=== PATIENT | female | born 1955 | race Caucasian/White ===

== ENCOUNTER 2024-11-03 13:48 | Inpatient (IN) | payer MEDICARE ==
[~2024-11-03] VITALS: Ht 167.6 cm; Wt 112.7 kg
[2024-11-03 13:52] VITALS: BP 121/59
[2024-11-03] MEDS ORDERED: ASPIRIN81 M1 PO (14:18)
[2024-11-03] MEDS ORDERED: AMLODIPINE BESYL5 MG PO (14:18)
[2024-11-03] MEDS ORDERED: FUROSEMIDE20 M1 PO (14:20)
[2024-11-03] MEDS ORDERED: LAMOTRIGINE200 MG PO (14:20)
[2024-11-03] MEDS ORDERED: METOPROLOL SUCC50 M1 PO (14:21)
[2024-11-03] MEDS ORDERED: PRAVASTATIN SOD80 MG PO (14:21)
[2024-11-03] MEDS ORDERED: TOPIRAMATE50 M2 PO (14:22)
[2024-11-03] MEDS ORDERED: LOSARTAN POTAS100 M1 PO (14:22)
[2024-11-03] MEDS ORDERED: CLOMIPRAMINE25 MG PO (14:23)
[2024-11-03] MEDS ORDERED: ARICEPT5 M1 PO (14:24)
[2024-11-03] MEDS ORDERED: HYDROCODONE-AC1 EAC2 PO (14:25)
[2024-11-03] MEDS ORDERED: ATIVAN0.5 MG PO (14:25)
[2024-11-03] MEDS ORDERED: MIRALAX17 GM PO (14:26)
[2024-11-03] MEDS ORDERED: POTASSIUM CHLO20 ME3 PO (14:26)
[2024-11-03 14:33] LABS: BASO # 0.1 10*3/uL (0.0-0.1); BASO % 0.7 % (0.0-1.0); EOS # 0.4 10*3/uL (0.0-0.4); EOS % 4.8 % (1.0-4.0); HEMATOCRIT 38.2 % (37.0-47.0); MEAN CELL VOLUME 93.4 fl (81.0-99.0); MEAN CORPUSCULAR HGB 28.9 pg (27.0-31.0); MEAN CORPUSCULAR HGB CONC 30.9 g/dl (33.0-37.0); MEAN PLATELET VOLUME 8.7 fl (9.6-12.3); MONO # 0.7 10*3/uL (0.1-1.0); MONO % 8.8 % (3.0-9.0); NEUT # 5.4 10*3/uL (2.3-7.9); NEUT % 73.9 % (47.0-73.0); PLATELET COUNT AUTOMATED 339 10*3/uL (130-400); RED BLOOD COUNT 4.09 10*6/uL (4.10-5.10); RED CELL DISTRI WIDTH 13.5 % (0-14.5); WHITE BLOOD COUNT 7.4 10*3/uL (4.8-10.8)
[2024-11-03 14:56] LABS: BUN 25 mg/dl (9-23); CHLORIDE 105 mmol/L (98-107); POTASSIUM 4.5 mmol/L (3.4-5.1)
[2024-11-03 14:57] LABS: ETHYL ALCOHOL < 3.0 mg/dl (<3)
[2024-11-03 15:18] LABS: URINE AMPHETAMINES Negative (1000ng/ml); URINE BARBITURATES Negative (200ng/ml); URINE BENZODIAZEPINES Negative (200ng/ml); URINE CANNABINOIDS (THC) Negative (50ng/ml); URINE COCAINE Negative (300ng/ml); URINE METHADONE Negative (300ng/ml); URINE OPIATES Positive (300ng/ml); URINE PHENCYCLIDINE Negative (25ng/ml)
[2024-11-03 15:20] LABS: BILIRUBIN Negative (Negative); CLARITY Clear (Clear); COLOR Yellow (Yellow); GLUCOSE Negative (Negative)
[2024-11-03 15:21] LABS: BLOOD Negative (Negative); KETONE Negative (Negative); LEUKO ESTERASE Negative (Negative); NITRITE Negative (Negative); UROBILINOGEN < 0.1 E.U./dl (0.0-1.0)
[2024-11-03 15:51] LABS: RBC 0-2 rbc/hpf (0-2)
[2024-11-03 18:39] VITALS: BP 127/54
[2024-11-03] MEDS ORDERED: hydrOXYzine hydrochloride 50 MG/ML VIAL IM PRN (18:55)
[2024-11-03] MEDS ORDERED: LORazepam 0.5 MG TAB PO PRN (18:55)
[2024-11-03] MEDS ORDERED: MG-AL HYDROXIDE/SIMETICONE 30 ML UDC PO PRN (19:40)
[2024-11-03] MEDS ORDERED: Magnesium Hydroxide 30 ML UDC PO PRN (19:40)
[2024-11-03] MEDS ORDERED: ACETAMINOPHEN 325 MG TAB PO PRN (19:40)
[2024-11-03] MEDS ORDERED: Menthol/Zinc Oxide 4 GM THIN T PRN (19:45)
[2024-11-03 20:00] VITALS: BP 128/51
[2024-11-03] MEDS ORDERED: clomiPRAMINE Hydrochloride 25 MG CAP PO SCH (21:00)
[2024-11-03] MEDS ORDERED: LAMOTRIGINE 100 MG TAB PO SCH (21:00)
[2024-11-04 06:39] LABS: BASO # 0.1 10*3/uL (0.0-0.1); BASO % 0.8 % (0.0-1.0); EOS # 0.4 10*3/uL (0.0-0.4); EOS % 5.9 % (1.0-4.0); HEMATOCRIT 37.6 % (37.0-47.0); MEAN CELL VOLUME 92.4 fl (81.0-99.0); MEAN CORPUSCULAR HGB 28.7 pg (27.0-31.0); MEAN CORPUSCULAR HGB CONC 31.1 g/dl (33.0-37.0); MEAN PLATELET VOLUME 8.9 fl (9.6-12.3); MONO # 0.7 10*3/uL (0.1-1.0); NEUT # 4.5 10*3/uL (2.3-7.9); NEUT % 68.1 % (47.0-73.0); PLATELET COUNT AUTOMATED 341 10*3/uL (130-400); RED BLOOD COUNT 4.07 10*6/uL (4.10-5.10); RED CELL DISTRI WIDTH 13.6 % (0-14.5); WHITE BLOOD COUNT 6.6 10*3/uL (4.8-10.8)
[2024-11-04 06:47] LABS: POTASSIUM 4.1 mmol/L (3.4-5.1); TOTAL PROTEIN 7.4 gm/dL (6.0-8.0)
[2024-11-04 07:23] LABS: VITAMIN D, 25-HYDROXY 46.2 ng/mL (30-100)
[2024-11-04 08:43] VITALS: BP 131/54
[2024-11-04] MEDS ORDERED: METOPROLOL SUCCINATE XR 50 MG TAB PO SCH ×2 (10:00→21:00)
[2024-11-04] MEDS ORDERED: amLODIPine besylate 5 MG TAB PO SCH (10:00)
[2024-11-04] MEDS ORDERED: POTASSIUM CHLORIDE 20 MEQ TAB PO SCH ×2 (10:00→21:00)
[2024-11-04] MEDS ORDERED: ASPIRIN ENTERIC COATED 81 MG TAB PO SCH (10:00)
[2024-11-04] MEDS ORDERED: TOPIRAMATE 25 MG TAB PO SCH ×2 (10:00→21:00)
[2024-11-04] MEDS ORDERED: FUROSEMIDE 20 MG TAB PO SCH ×2 (10:00→21:00)
[2024-11-04] MEDS ORDERED: Losartan Potassium 50 MG TAB PO SCH (10:00)
[2024-11-04] MEDS ORDERED: Melatonin 5 MG TABLET PO PRN (10:20)
[2024-11-04] MEDS ORDERED: Rivastigmine Tartrate 4.6 MG/24 HR PATCH T SCH (10:30)
[2024-11-04] MEDS ORDERED: AMMONIUM LACTATE 12% LOTION T SCH (10:50)
[2024-11-04] MEDS ORDERED: NYSTATIN 15 GM BOT T SCH (10:50)
[2024-11-04 20:00] VITALS: BP 124/64
[2024-11-04] MEDS ORDERED: ATORVASTATIN CALCIUM 20 MG TAB PO SCH ×2 (21:00→22:00)
[2024-11-05 08:00] VITALS: BP 119/58
[2024-11-05] MEDS ORDERED: amLODIPine besylate 5 MG TAB PO SCH (09:00)
[2024-11-05] MEDS ORDERED: Losartan Potassium 50 MG TAB PO SCH (09:00)
[2024-11-05] MEDS ORDERED: ASPIRIN ENTERIC COATED 81 MG TAB PO SCH (09:00)
[2024-11-05 20:00] VITALS: BP 96/54
[2024-11-06 08:32] VITALS: BP 99/52
[2024-11-06 20:00] VITALS: BP 100/39
[2024-11-07 08:00] VITALS: BP 107/89
[2024-11-07] MEDS ORDERED: Rivastigmine Tartrate 9.5 MG/24 HR PATCH T SCH (09:00)
[2024-11-07 20:09] VITALS: BP 106/54
[2024-11-08 08:00] VITALS: BP 106/52
[2024-11-08 20:00] VITALS: BP 111/62
[2024-11-08] MEDS ORDERED: FOAM BANDAGE 1 EACH BANDAGE T ONE (21:11)
[2024-11-09 08:13] VITALS: BP 103/52
[2024-11-09] MEDS ORDERED: RIVASTIGMINE 13.3 MG/24 HR TDM T SCH (09:00)
[2024-11-09 20:00] VITALS: BP 103/52
[2024-11-10 08:00] VITALS: BP 120/57
[2024-11-10] MEDS ORDERED: FOAM BANDAGE 1 EACH BANDAGE T ONE (19:52)
[2024-11-10 20:00] VITALS: BP 127/54
[2024-11-11 06:13] LABS: BASO % 0.6 % (0.0-1.0); EOS # 0.4 10*3/uL (0.0-0.4); EOS % 5.8 % (1.0-4.0); HEMATOCRIT 35.1 % (37.0-47.0); MEAN CELL VOLUME 92.4 fl (81.0-99.0); MEAN CORPUSCULAR HGB 28.7 pg (27.0-31.0); MEAN CORPUSCULAR HGB CONC 31.1 g/dl (33.0-37.0); MEAN PLATELET VOLUME 9.1 fl (9.6-12.3); MONO # 0.8 10*3/uL (0.1-1.0); NEUT # 4.5 10*3/uL (2.3-7.9); NEUT % 65.4 % (47.0-73.0); PLATELET COUNT AUTOMATED 263 10*3/uL (130-400); RED CELL DISTRI WIDTH 13.9 % (0-14.5); WHITE BLOOD COUNT 6.9 10*3/uL (4.8-10.8)
[2024-11-11 06:41] LABS: ALKALINE PHOSPHATASE 101 U/L (46-116); BUN 19 mg/dl (9-23); CHLORIDE 105 mmol/L (98-107); POTASSIUM 3.9 mmol/L (3.4-5.1); TOTAL PROTEIN 6.6 gm/dL (6.0-8.0)
[2024-11-11 06:42] LABS: SGPT/ALT < 7 U/L (5-49)
[2024-11-11 08:00] VITALS: BP 118/52
[2024-11-11] MEDS ORDERED: NYSTATIN 15 GM BOT T SCH (10:00)
[2024-11-11 20:00] VITALS: BP 110/41
[2024-11-11] MEDS ORDERED: RIVASTIGMINE1 EAC2 T (20:54)
[2024-11-11] MEDS ORDERED: CLOMIPRAMINE25 MG PO (20:54)
[2024-11-12 08:00] VITALS: BP 129/57
[2024-11-12] MEDS ORDERED: MELATONIN5 M7 PO (10:03)
== END 2024-11-12 11:30 | DRG 885 ==
LOC: ED 13:48 → EDHOLD 18:08 → 3N 18:08
PROVIDERS: Counselor Professional; Physician Assistant Medical; ADMIT Psychiatry & Neurology Psychiatry; ATTEND Psychiatry & Neurology Psychiatry
PROC: 0HBRXZZ Excision of Toe Nail, External Approach (ICD-10-PCS; 2024-11-04)
PROC: 0HBRXZZ Excision of Toe Nail, External Approach (ICD-10-PCS; 2024-11-04)
PROC: 0HBRXZZ Excision of Toe Nail, External Approach (ICD-10-PCS; 2024-11-04)
PROC: 0HBRXZZ Excision of Toe Nail, External Approach (ICD-10-PCS; 2024-11-04)
PROC: 0HBRXZZ Excision of Toe Nail, External Approach (ICD-10-PCS; 2024-11-04)
PROC: 0HBRXZZ Excision of Toe Nail, External Approach (ICD-10-PCS; 2024-11-04)
PROC: 0HBRXZZ Excision of Toe Nail, External Approach (ICD-10-PCS; 2024-11-04)
PROC: 0HBRXZZ Excision of Toe Nail, External Approach (ICD-10-PCS; 2024-11-04)
PROC: 0HBRXZZ Excision of Toe Nail, External Approach (ICD-10-PCS; 2024-11-04)
PROC: 0HBRXZZ Excision of Toe Nail, External Approach (ICD-10-PCS; 2024-11-04)
PROC: GZHZZZZ Group Psychotherapy (ICD-10-PCS; principal; 2024-11-05)
PROC: GZ56ZZZ Individual Psychotherapy, Supportive (ICD-10-PCS; 2024-11-05)
DX: F33.2 Major depressive disorder, recurrent severe without psychotic features (principal); E43 Unspecified severe protein-calorie malnutrition; N18.30 Chronic kidney disease, stage 3 unspecified; N17.0 Acute kidney failure with tubular necrosis; F03.93 Unspecified dementia, unspecified severity, with mood disturbance; R45.851 Suicidal ideations; Z68.41 Body mass index [BMI] 40.0-44.9, adult; F43.21 Adjustment disorder with depressed mood; F19.10 Other psychoactive substance abuse, uncomplicated; I12.9 Hypertensive chronic kidney disease with stage 1 through stage 4 chronic kidney disease, or unspecified chronic kidney disease; D64.9 Anemia, unspecified; F42.8 Other obsessive-compulsive disorder; F60.3 Borderline personality disorder; B35.1 Tinea unguium; L60.2 Onychogryphosis; L85.3 Xerosis cutis; E78.5 Hyperlipidemia, unspecified; Z88.8 Allergy status to other drugs, medicaments and biological substances; Z91.09 Other allergy status, other than to drugs and biological substances; Z79.899 Other long term (current) drug therapy; Z79.01 Long term (current) use of anticoagulants; Z79.2 Long term (current) use of antibiotics; Z82.49 Family history of ischemic heart disease and other diseases of the circulatory system; Z83.3 Family history of diabetes mellitus